=== PATIENT | male | born 1955 ===

== ENCOUNTER → 2018-03-05 07:51 | Outpatient (CLI) | payer OTHER ==
[~2018-03-05 07:51] MED LIST: COREG CR40 MG; DILTIAZEM 24HR240 MG; GLUMETZA1000 MG; HALDOL5 MG/M1; LITE COAT ASPI325 MG; TRICOR48 MG
== END | disposition home or self-care (01) ==
LOC: LAB 07:51
DX: D12.0 Benign neoplasm of cecum (principal); D37.4 Neoplasm of uncertain behavior of colon; R19.4 Change in bowel habit

== ENCOUNTER 2018-03-13 08:05 | Day surgery (SDC) | payer OTHER | END 2018-03-13 12:50 | disposition home or self-care (01) | LOC: CIR.AMB 08:05 | DX: D12.0 Benign neoplasm of cecum (principal); K64.8 Other hemorrhoids ==

== ENCOUNTER 2019-03-26 09:14 | Day surgery (SDC) | payer OTHER | END 2019-03-26 14:05 | disposition home or self-care (01) | LOC: AMB-ENDOS 09:14 → ADM 14:45 → AMB-ENDOS 14:45 | DX: K63.5 Polyp of colon (principal); K57.30 Diverticulosis of large intestine without perforation or abscess without bleeding ==